=== PATIENT | female | born 1980 | race Caucasian/White ===

== ENCOUNTER 2016-10-31 11:33 | Day surgery (SDC) | payer MEDICAID ==
[~2016-10-31 11:33] MED LIST: PROPOFOL INJ 200 MG/20 ML VIAL IV ONE
[2016-10-31] MEDS ORDERED: PROPOFOL INJ 200 MG/20 ML VIAL IV ONE (13:26)
--- NOTE | 2016-10-31 13:56 | Operative Report ---
Operative Report DATE OF SURGERY: 10/31/16 Operative Report: The risks, benefits and alternatives of the procedure including risks of bleeding, perforation requiring surgery are explained to the patient detail and informed consent was obtained. Patient was taken back to the endoscopy suite and placed in the left, lateral decubital position. Timeout was called. Propofol medications administered. A rectal examination was done which did not reveal any masses, tears or fissures. An Olympus videoscope was inserted into the patient's rectum. It is then carefully advanced all the way to the cecum. The cecum was identified by the usual anatomical landmarks including the ileocecal valve as well as the appendiceal office. Photodocumentation is obtained. The scope was then sequentially pulled back via the rest segments of the colon including the ascending colon, hepatic flexure, transverse colon, splenic flexure, descending colon and finding to the rectosigmoid portions of the colon. Retroflexion maneuver is performed. PREOPERATIVE DIAGNOSIS: Colorectal cancer screening. POSTOPERATIVE DIAGNOSIS: Small polyp noted in the hepatic flexure/transverse colon area we will be has had polypectomy. Splenic flexure polyp removed via snare polypectomy. Sigmoid polyp attached to a very large base which is removed via snare polypectomy and 2 endoclips were placed to reduce the risk of post polypectomy bleeding. Internal hemorrhoids OPERATION: Colonoscopy with snare polypectomy SURGEON: KEISHA CEBALLOS ANESTHESIA: LMAC TISSUE REMOVED OR ALTERED: All 3 polyps are retrieved and placed in separate containers. COMPLICATIONS: None. ESTIMATED BLOOD LOSS: None. INTRAOPERATIVE FINDINGS: As described above. PROCEDURE: Patient tolerated procedure well. No immediate postprocedure complications are noted. Patient discharged in good condition. Discharge date 10/31/2016. Discharge diet: Regular. Discharge activity: Regular. 2-3 week follow-up to discuss findings. 1 year surveillance colonoscopy. We will wait on pathology. Patient is instructed to call the office or proceed to the emergency room should there be any further problems or questions.
[2016-10-31 14:23] VITALS: BP 126/80
== END 2016-10-31 14:10 | disposition home or self-care (01) ==
LOC: END 11:33
PROVIDERS: ATTEND Internal Medicine Gastroenterology
PROC: 0DBN8ZX Excision of Sigmoid Colon, Via Natural or Artificial Opening Endoscopic, Diagnostic (ICD-10-PCS; 2016-10-31)
PROC: 0DBL8ZX Excision of Transverse Colon, Via Natural or Artificial Opening Endoscopic, Diagnostic (ICD-10-PCS; 2016-10-31)
PROC: 0DBL8ZX Excision of Transverse Colon, Via Natural or Artificial Opening Endoscopic, Diagnostic (ICD-10-PCS; principal; 2016-10-31 14:30)
DX: Z12.11 Encounter for screening for malignant neoplasm of colon (principal); K63.5 Polyp of colon; D12.5 Benign neoplasm of sigmoid colon; K64.8 Other hemorrhoids; I10 Essential (primary) hypertension; E06.3 Autoimmune thyroiditis; G47.30 Sleep apnea, unspecified; F17.210 Nicotine dependence, cigarettes, uncomplicated; Z79.899 Other long term (current) drug therapy; Z88.6 Allergy status to analgesic agent
CPT/HCPCS: 45385; 88305 ×2; J2704; 810

== ENCOUNTER 2017-09-25 07:13 | Inpatient (IN) | payer BC, MEDICAID ==
[2017-09-19 10:51] LABS: APPEARANCE,URINE CLEAR; BILIRUBIN,URINE NEGATIVE (NEGATIVE); COLOR,URINE STRAW; GLUCOSE, URINE NEGATIVE (NEGATIVE); KETONES,URINE NEGATIVE (NEGATIVE); LEUKOCYTE ESTERASE,URINE NEGATIVE (NEGATIVE); NITRITE,URINE NEGATIVE (NEGATIVE); PROTEIN,URINE NEGATIVE (NEGATIVE); URINE SPECIFIC GRAVITY 1.006; UROBILINOGEN,URINE NEGATIVE mg/dL (<2.0)
--- NOTE | 2017-09-19 11:46 | RADIOLOGY REPORT (SQ) ---
EXAM DESCRIPTION: CHEST PA/LATERAL COMPLETED DATE/TIME: 09/19/2017 11:10 am REASON FOR STUDY: PRE-OP COMPARISON: Chest films 09/01/2010, 03/04/2009 CT angio chest 06/24/2010 EXAM PARAMETERS: NUMBER OF VIEWS: two views TECHNIQUE: Digital Frontal and Lateral radiographic views of the chest acquired. RADIATION DOSE: NA LIMITATIONS: none FINDINGS: LUNGS AND PLEURA: No opacities, masses or pneumothorax. No pleural effusion. MEDIASTINUM AND HILAR STRUCTURES: No masses or contour abnormalities. HEART AND VASCULAR STRUCTURES: Heart normal size. No evidence for failure. BONES: No acute findings. HARDWARE: None in the chest. OTHER: No other significant finding. IMPRESSION: NO SIGNIFICANT RADIOGRAPHIC FINDING IN THE CHEST. TECHNICAL DOCUMENTATION: JOB ID: [id number] [employer] (formerly [employer])- All Rights Reserved Reading location - IP/workstation name: [facility]
[2017-09-19 12:15] LABS: HEMATOCRIT 40.6 % (36.0-47.0); HEMOGLOBIN 13.8 g/dL (12.0-15.5); MEAN CORPUSCULAR HEMOGLOBIN 27.5 pg (27.0-33.4); MEAN CORPUSCULAR HGB CONC 33.9 g/dL (32.0-36.0); MEAN CORPUSCULAR VOLUME 81 fl (80-97); PLATELET COUNT 243 10^3/uL (150-450); RED CELL DISTRIBUTION WIDTH 14.2 % (11.5-14.0); WHITE BLOOD COUNT 7.8 10^3/uL (4.0-10.5)
[2017-09-19 12:44] LABS: ALANINE AMINOTRANSFERASE 32 U/L (9-52); ALBUMIN 4.6 g/dL (3.5-5.0); ALKALINE PHOSPHATASE 57 U/L (38-126); ANION GAP 14 (5-19); ASPARTATE AMINO TRANSFERASE 18 U/L (14-36); BILIRUBIN,DIRECT 0.3 mg/dL (0.0-0.4); BILIRUBIN,TOTAL 0.6 mg/dL (0.2-1.3); BLOOD UREA NITROGEN 18 mg/dL (7-20); CALCIUM 9.5 mg/dL (8.4-10.2); CARBON DIOXIDE 30 mmol/L (22-30); CHLORIDE 100 mmol/L (98-107); GLUCOSE 93 mg/dL (75-110); POTASSIUM 3.4 mmol/L (3.6-5.0); SODIUM 143.9 mmol/L (137-145); TOTAL PROTEIN 7.3 g/dL (6.3-8.2)
--- NOTE | 2017-09-19 19:42 | EKG REPORT ---
SEVERITY:- BORDERLINE ECG - SINUS RHYTHM BORDERLINE T ABNORMALITIES, INFERIOR LEADS : Confirmed by: Valentina Hawkins MD 19-Sep-2017 19:41:40
[~2017-09-25 07:13] MED LIST changes: +CEFAZOLIN 2 GM/D5W RTU 2 GM/50 ML RTUPB IV PRN; +LACTATED RINGERS 1000 ML IV PRN; +LIDOCAINE 0.5% INJ-PF (5 MG/ML) 50 ML SDV SUBCUT PRN; -PROPOFOL INJ 200 MG/20 ML VIAL IV ONE
[2017-09-25] MEDS ORDERED: BUPIVACAINE HCL 0.25 % INJ/PF (2.5 MG/1 ML) 30 ML VIAL ONE (07:36)
[2017-09-25] MEDS ORDERED: MIDAZOLAM 2 MG/2 ML INJ ONE (09:35)
[2017-09-25] MEDS ORDERED: PROPOFOL INJ 200 MG/20 ML VIAL IV ONE (09:35)
[2017-09-25] MEDS ORDERED: FENTANYL CITRATE INJ/PF 250 MCG/5 ML AMPULE ONE (09:35)
[2017-09-25] MEDS ORDERED: MORPHINE SULFATE 10 MG/ML INJ ONE ×2 (09:35→11:20)
[2017-09-25] MEDS ORDERED: ACETAMINOPHEN 0 MG/0 ML RTUPB IV ONE (09:35)
[2017-09-25] MEDS ORDERED: PROMETHAZINE HCL INJ 25 MG/1 ML VIAL IV PRN ×2 (10:35)
[2017-09-25] MEDS ORDERED: MEPERIDINE HCL/PF INJ 25 MG/1 ML DISP.SYRIN IV PRN (10:35)
[2017-09-25] MEDS ORDERED: ONDANSETRON HCL INJ/PF 4 MG/2 ML SDV IV PRN (10:35)
[2017-09-25] MEDS ORDERED: DIPHENHYDRAMINE HCL 50 MG/ML VIAL IV PRN (10:35)
[2017-09-25] MEDS ORDERED: MORPHINE SULFATE 10 MG/ML INJ IV PRN ×2 (10:35→13:20)
[2017-09-25] MEDS ORDERED: FENTANYL CITRATE INJ/PF 100 MCG/2 ML AMPUL IV PRN ×3 (10:35)
[2017-09-25] MEDS ORDERED: FENTANYL CITRATE INJ/PF 100 MCG/2 ML AMPUL ONE ×2 (11:19→11:20)
[2017-09-25] MEDS: PROMETHAZINE HCL INJ 25 MG/1 ML VIAL ONE ×2 (12:58→13:27)
[2017-09-25] MEDS: FENTANYL CITRATE INJ/PF 100 MCG/2 ML AMPUL ONE ×2 (12:58→13:03)
[2017-09-25] MEDS ORDERED: HYDROMORPHONE HCL 2 MG TABLET PO PRN (13:21)
--- NOTE | 2017-09-25 13:30 | OPERATIVE REPORT E ---
Operative Report NAME: MATILDA LIZARRAGA : 1980 AGE: 37Y DATE OF SURGERY:09/25/2017 ROOM: PREOPERATIVE DIAGNOSIS: Menorrhagia. POSTOPERATIVE DIAGNOSES: 1. Menorrhagia. 2. Adhesions. 3. Incision nodule. PROCEDURE: Attempted robotic-assisted hysterectomy with conversion to laparotomy hysterectomy and bilateral salpingo-oophorectomy. SURGEON: Kim POOLE MD QUALITY CONTROL REPRESENTATIVE: Tamra Ya MD ANESTHESIA: General. ESTIMATED BLOOD LOSS: Approximately 500 mL. TISSUE REMOVED: Uterus and tubes. PROCEDURE: The patient was placed in a dorsal lithotomy position, prepped, and draped in sterile fashion. A speculum was placed and the cervix visualized and grasped with a single-toothed tenaculum, sounded to a depth of 14 cm. The medium uterine manipulator was placed per protocol. Attention was turned to the abdomen where a midline supraumbilical incision was made and the trocar was introduced with insertion of the laparoscope. The uterus appeared to have multiple adhesions on the right with some filmy adhesions on the left. A second puncture was made lateral to the first one on the left and a third on the right. Five trocars introduced and an accessory port above the suprailiac crest on the right. The robot was docked in the usual fashion. Using the bipolar cautery, both tubes were removed along the mesosalpinx. The left round ligament was identified and divided on the right. Multiple adhesions from the anterior abdominal wall to the uterus were encountered. Prior to that time, multiple adhesions from the omentum had been taken down from the scar. Several attempts were made to get around the adhesions and take them down, but was technically unable to complete this with a robot. The robot was then docked and the trocars were removed after insufflating the abdomen. Those incisions were closed with 0 Vicryl for the fascia and 4-0 Vicryl for subcutaneous. A Pfannenstiel incision was made to an existing Pfannenstiel eschar. The incision extended through the subcutaneous tissue and fascia. The fascia was sharply divided on the left. On the left, the uterus was firmly adherent to the anterior abdominal wall. The left round was identified and sutured. On the right, the round was identified and sutured, carefully taking down as many adhesions as possible. The pedicles were carefully divided and sutured with 2-0 Vicryl. Bladder flap was created with sharp dissection. The cervix was then cross clamped and the uterus and cervix were removed. The cuff was closed with [id number] of 2-0 Vicryl. One small round ligament was noted on the right, controlled with [id number] suture of 0 Vicryl. Copious amounts of irrigation was used and hemostasis was noted. The fascia was then closed. There was a nodule in her incision. The nodule was taken out with sharp dissection and cautery. The subcutaneous tissue was then closed using interrupted 0 plain and the skin was closed with subcutaneous absorbable jt. Her urine remained clear throughout the procedure. She was taken to the recovery room in good condition. DICTATING PHYSICIAN: Kim POOLE M.D. [id number] PHY#: [id number] ID: [id number] JOB#: [id number] ACCT: [id number] cc:Kim POOLE M.D. >
[2017-09-25] MEDS ORDERED: NEOSTIGMINE METHYLSULFATE 10 MG/10 ML VIAL ONE (14:01)
[2017-09-25] MEDS ORDERED: SUCCINYLCHOLINE CHLORIDE INJ 200 MG/10 ML VIAL ONE (14:01)
[2017-09-25] MEDS ORDERED: DEXAMETHASONE SOD PHOSPHATE INJ 4 MG/1 ML VIAL ONE (14:01)
[2017-09-25] MEDS ORDERED: ONDANSETRON HCL INJ/PF 4 MG/2 ML SDV ONE (14:01)
[2017-09-25] MEDS ORDERED: GLYCOPYRROLATE 1 MG/5 ML SYRINGE ONE (14:01)
[2017-09-25] MEDS ORDERED: ROCURONIUM BROMIDE INJ 50 MG/5 ML VIAL IV ONE (14:01)
[2017-09-25] MEDS: ONDANSETRON 4 MG TAB.RAPDIS PO PRN (16:18)
[2017-09-25] MEDS: HYDROMORPHONE HCL INJ/PF 2 MG/ML AMPULE IV PRN ×2 (16:19→20:16)
[2017-09-25] MEDS: DEXTROSE 5%-LACTATED RINGERS 1,000 ML IV PRN (16:20)
[2017-09-25] MEDS ORDERED: (PENDING PHARMACY ID) (Labetalol Hcl [Labetalol Hcl] 100 MG) PO SCH (18:00)
[2017-09-25] MEDS: LABETALOL HCL 200 MG TABLET PO SCH (21:44)
[2017-09-26] MEDS: DEXTROSE 5%-LACTATED RINGERS 1,000 ML IV PRN (00:51)
[2017-09-26] MEDS: ONDANSETRON 4 MG TAB.RAPDIS PO PRN (00:51)
[2017-09-26] MEDS: HYDROMORPHONE HCL 2 MG TABLET PO PRN ×3 (01:13→12:57)
[2017-09-26 06:05] LABS: HEMATOCRIT 30.8 % (36.0-47.0); HEMOGLOBIN 10.5 g/dL (12.0-15.5); MEAN CORPUSCULAR HEMOGLOBIN 27.7 pg (27.0-33.4); MEAN CORPUSCULAR HGB CONC 34.1 g/dL (32.0-36.0); MEAN CORPUSCULAR VOLUME 81 fl (80-97); PLATELET COUNT 201 10^3/uL (150-450); RED BLOOD COUNT 3.79 10^6/uL (3.72-5.28); RED CELL DISTRIBUTION WIDTH 14.2 % (11.5-14.0); WHITE BLOOD COUNT 10.7 10^3/uL (4.0-10.5)
--- NOTE | 2017-09-26 07:40 | PDOC DISCHARGE SUMMARY ---
General - Admit/Disc Date/PCP Admission Date/Primary Care Provider: 09/25/17 13:36 KVNG RODRIGUEZ Discharge Date: 09/26/17 - Discharge Diagnosis (1) Menorrhagia Is this a current diagnosis for this admission?: Yes - Additional Information Home Medications: Labetalol HCl [Labetalol HCl] 1 tab PO BID 06/22/13 Hydrochlorothiazide 25 mg PO DAILY 10/28/16 Tyrosine 50 each PO DAILY 10/28/16 History of Present Illness History of Present Illness: MATILDA LIZARRAGA is a 37 year old female Hospital Course Hospital Course: pt had YURI she is ambulatory and tolerating a reg diet Physical Exam - Physical Exam Vital Signs: Temp Pulse Resp BP Pulse Ox 98.1 F 82 16 127/62 H 96 09/26/17 03:13 09/26/17 03:13 09/26/17 03:13 09/26/17 03:13 09/26/17 03:13 Intake & Output 09/25/17 09/26/17 09/27/17 06:59 06:59 06:59 Intake Total 4150 Output Total 4100 Balance 50 Weight 131.54 kg General appearance: PRESENT: no acute distress Respiratory exam: PRESENT: clear to auscultation kwame GI/Abdominal exam: PRESENT: soft Musculoskeletal exam: PRESENT: ambulatory Result Laboratory Results: 09/26/17 05:57 09/25/17 07:50 09/25/17 09/25/17 09/26/17 07:50 07:50 05:57 WBC 10.7 H RBC 3.79 Hgb 10.5 L Hct 30.8 L MCV 81 MCH 27.7 MCHC 34.1 RDW 14.2 H Plt Count 201 Potassium 3.9 Serum HCG, Qual NEGATIVE Impressions: Chest X-Ray 09/19/17 10:59 IMPRESSION: NO SIGNIFICANT RADIOGRAPHIC FINDING IN THE CHEST. Plan Discharge Plan: d/c f/u 1 week Time Spent: Less than 30 Minutes
[2017-09-26] MEDS ORDERED: BENZOCAINE/MENTHOL AEROSOL SPRAY 56 ML TOP PRN (07:57)
[2017-09-26] MEDS ORDERED: LIDOCAINE 2%/EPINEPHRINE INJ 20 ML VIAL ONE (08:58)
[2017-09-26] MEDS ORDERED: LIDOCAINE 2%/EPINEPHRINE INJ 20 ML VIAL INJ ONE (08:59)
[2017-09-26] MEDS ORDERED: MEPERIDINE HCL/PF INJ 25 MG/1 ML DISP.SYRIN ONE (08:59)
[2017-09-26] MEDS ORDERED: HYDROCHLOROTHIAZIDE 25 MG TABLET PO SCH (10:00)
[2017-09-26] MEDS ORDERED: TYROSINE PO SCH (10:00)
[2017-09-26] MEDS: LABETALOL HCL 200 MG TABLET PO SCH (10:36)
[2017-09-26 11:32] VITALS: BP 127/62
== END 2017-09-26 16:35 | disposition hospice, home (50) | DRG 743 ==
LOC: OROUT 07:13 → 2S 13:36
PROVIDERS: ADMIT Obstetrics & Gynecology Gynecology; ATTEND Obstetrics & Gynecology Gynecology
PROC: 0UT7FZZ Resection of Bilateral Fallopian Tubes, Via Natural or Artificial Opening With Percutaneous Endoscopic Assistance (ICD-10-PCS; 2017-09-25)
PROC: 0UT2FZZ Resection of Bilateral Ovaries, Via Natural or Artificial Opening With Percutaneous Endoscopic Assistance (ICD-10-PCS; 2017-09-25)
PROC: 0DNU4ZZ Release Omentum, Percutaneous Endoscopic Approach (ICD-10-PCS; 2017-09-25)
PROC: 8E0W4CZ Robotic Assisted Procedure of Trunk Region, Percutaneous Endoscopic Approach (ICD-10-PCS; 2017-09-25)
PROC: 0HB7XZZ Excision of Abdomen Skin, External Approach (ICD-10-PCS; 2017-09-25)
PROC: 0UT9FZZ Resection of Uterus, Via Natural or Artificial Opening With Percutaneous Endoscopic Assistance (ICD-10-PCS; principal; 2017-09-25 09:15)
DX: N93.9 Abnormal uterine and vaginal bleeding, unspecified (principal); I10 Essential (primary) hypertension; F32.9 Major depressive disorder, single episode, unspecified; N73.6 Female pelvic peritoneal adhesions (postinfective); Z90.49 Acquired absence of other specified parts of digestive tract; Z87.891 Personal history of nicotine dependence; Z88.6 Allergy status to analgesic agent; Z82.49 Family history of ischemic heart disease and other diseases of the circulatory system; Z80.49 Family history of malignant neoplasm of other genital organs; Z83.3 Family history of diabetes mellitus
CPT/HCPCS: 36415; 71046; 80053; 81001; 840; 84132; 84703; 85027; 86850; 86900; 86901; 88305; 88307; 93005; 93010; J0131; J0330; J0690; J1100; J1170; J2175; J2250; J2270; J2405; J2550; J2704; J3010; J3490; S0119

== ENCOUNTER 2019-12-09 07:50 | Day surgery (SDC) | payer BC, OTHER ==
[2019-12-09] MEDS ORDERED: PROPOFOL INJ 200 MG/20 ML VIAL IV ONE ×2 (07:56→10:20)
--- NOTE | 2019-12-09 10:14 | Operative Report ---
Operative Report DATE OF SURGERY: 12/09/19 Operative Report: The risk, benefits and alternatives of the procedure including the risk of bleeding, perforation requiring surgery have been explained to the patient in detail and informed consent has been obtained. Patient is placed in a left, lateral decubital position. Timeout was called. Propofol medication is administered. Rectal examination is done which did not reveal any masses, tears or fissures. An Olympus videoscope was introduced into the patient's rectum. Scope was then carefully advanced all the way to the cecum. Cecum was identified by the usual anatomical landmarks including the ileocecal valve as well as the appendiceal office. Photodocumentation is obtained. Scope was then sequentially pulled back via the various segments of the colon including the ascending colon, hepatic lecture, transverse colon, splenic flexure, descending colon finding to the rectosigmoid portions of the colon. Retroflexion maneuvers performed. PREOPERATIVE DIAGNOSIS: Personal history of polyp POSTOPERATIVE DIAGNOSIS: Normal colonoscopy to the cecum no evidence of any further polyps OPERATION: Diagnostic colonoscopy SURGEON: KEISHA CEBALLOS ANESTHESIA: LMAC TISSUE REMOVED OR ALTERED: As noted above. COMPLICATIONS: None. ESTIMATED BLOOD LOSS: None. INTRAOPERATIVE FINDINGS: As noted above. PROCEDURE: Patient tolerated the procedure well. No immediate postprocedure complications are noted. Patient is discharged in good condition. Discharge date 12/09/2019. Discharge diet: Regular. Discharge activity: Regular. 2 to 3-week follow-up to discuss findings. Patient is instructed call the office or proceed to the emergency room should there be any further problems or questions. Wait on the pathology. 5-year surveillance colonoscopy
[2019-12-09 10:41] VITALS: BP 121/76
== END 2019-12-09 10:45 | disposition home or self-care (01) ==
LOC: END 07:50
PROVIDERS: ATTEND Internal Medicine Gastroenterology
DX: Z12.11 Encounter for screening for malignant neoplasm of colon (principal); Z86.010 Personal history of colon polyps; R94.31 Abnormal electrocardiogram [ECG] [EKG]; K21.9 Gastro-esophageal reflux disease without esophagitis; D64.9 Anemia, unspecified; I49.9 Cardiac arrhythmia, unspecified; E07.9 Disorder of thyroid, unspecified; I10 Essential (primary) hypertension; Z79.899 Other long term (current) drug therapy; Z88.8 Allergy status to other drugs, medicaments and biological substances; Z20.828 Contact with and (suspected) exposure to other viral communicable diseases
CPT/HCPCS: 45378; 87635; 00811; J2704; C9803; 811